=== PATIENT | female | born 1955 | race Caucasian/White ===

== ENCOUNTER 2016-03-31 18:37 | Emergency (ER) | payer OTHER ==
[~2016-03-31] VITALS: Ht 167.6 cm; Wt 57.2 kg
[~2016-03-31 18:37] MED LIST: BIAXIN500 M1 PO; PREDNISONE20 M1 PO; PROVENTIL HFA6.7 GM INH
[2016-03-31 19:56] LABS: ABSOLUTE BASOPHIL COUNT 0.1 /CUMM (0.0-0.2); ABSOLUTE EOSINOPHIL COUNT 0.2 /CUMM (0.0-0.7); ABSOLUTE GRANULOCYTE CT 8.9 /CUMM (1.4-6.5); ABSOLUTE MONOCYTE COUNT 0.8 /CUMM (0.10-0.60); BASOPHIL % 0.5 % (0.0-2.0); EOSINOPHIL % 1.3 % (0-5); GRANULOCYTE % 74.6 % (42.2-75.2); MEAN CORPUSCULAR HGB 28.1 PG (27.0-31.0); MEAN CORPUSCULAR HGB CONC 33.2 G/DL (33.0-37.0); MEAN CORPUSCULAR VOLUME 84.6 FL (81.0-99.0); MEAN PLATELET VOLUME 8.2 FL (7.4-10.4); PLATELET COUNT 350 /CUMM (130-400); RBC DISTRIBUTION WIDTH 14.1 % (11.5-14.5); RED BLOOD CELL CT 5.44 /CUMM (4.20-5.40); WHITE BLOOD CELL COUNT 11.9 /CUMM (4.8-10.8)
--- NOTE | 2016-03-31 20:37 | RADIOLOGY REPORT ---
EXAMINATION: XR PORTABLE CHEST CLINICAL INFORMATION: Chest pain. COMPARISON: Chest x-ray 07/04/2015. TECHNIQUE: Portable view of the chest was obtained. FINDINGS: The visualized lungs are hyperinflated. There are subtle airspace opacities within the right lower lobe, more conspicuous relative to the prior examination, suspicious for recurrent pneumonia. The left lung is grossly clear. No pleural effusions or pneumothoraces are identified. Cardiac mediastinal contours are stable. Surgical clips are present within the right axilla. There is no visible acute osseous abnormality. IMPRESSION: Patchy airspace opacities within the right lung base, suspicious for infection. Recommend follow-up PA and lateral chest x-ray following treatment to injury resolution. Pulmonary hyperinflation and flattening of the bilateral hemidiaphragms. This constellation of findings can be seen in the setting of COPD.
--- NOTE | 2016-03-31 21:14 | ED INFLUENZA/URI COMPLAINT ---
History of Present Illness General Chief Complaint: Upper Respiratory Sx/Fever Stated Complaint: CP, URI, X 4 DAYS Source: patient Exam Limitations: no limitations Vital Signs & Intake/Output Vital Signs & Intake/Output Vital Signs Date Time Temp Pulse Resp B/P Pulse O2 O2 Flow FiO2 Ox Delivery Rate 04/01 0123 98.0 62 18 104/60 92 Room Air 03/31 2341 98.4 63 18 102/64 91 Room Air 03/31 2123 100.2 60 24 118/60 Room Air ED Intake and Output 04/01 0000 03/31 1200 Intake Total Output Total Balance Patient 126 lb Weight Allergies Coded Allergies: Penicillins (HIVES 07/04/15) cefdinir (UNKNOWN 07/04/15) fentanyl (RESPIRATORY 07/04/15) meloxicam (UNKNOWN 07/04/15) shellfish derived (UNKNOWN 07/04/15) tramadol (UNKNOWN 07/04/15) Sulfa (Sulfonamide Antibiotics) (GI 07/04/15) Reconcile Medications Albuterol Sulfate (Proventil Hfa) 6.7 GM HFA.AER.AD 2 PUF INH Q4 BRONCHITIS Albuterol Sulfate (Proventil Hfa) 90 MCG HFA.AER.AD 2 PUF INH Q4 PRN wheeze Clarithromycin (Biaxin) 500 MG TABLET 1 TAB PO BID INFN Levofloxacin (Levaquin) 500 MG TABLET 1 TAB PO DAILY bronchitis/copd exacerbation Prednisone 20 MG TABLET 2 TAB PO BID BRONCHITIS Prednisone 50 MG TABLET 1 TAB PO DAILY copd exacerbation Triage Note: PT TO ED FOR FLU LIKE SYMPTOMS SINCE SUNDAY, REPORTING FEVER, NAUSEA, SORE THROAT, EAR ACHES PRODUCTIVE GREEN COUGH. Triage Nurses Notes Reviewed? yes Onset: Gradual Duration: day(s): Timing: recent history Severity: moderate Prior Episodes/Possible Cause: occassional episodes Modifying Factors: Worsens With: other (worse w/ coughing). Associated Symptoms: cough, wheezing HPI: 61 yo woman h/o copd, h/o pneumonia, presents with cough, phlegm, and wheeze, "just like last year when I had pneumonia." She notes that she completed a course of cephalosporin and started a second course 3 days ago. She notes fever today to 101.4 and body aches. Past History Travel History Traveled to [place] past 21 day No Medical History Any Pertinent Medical History? 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 No Review of Systems Review of Systems Constitutional: Reports: no symptoms. EENTM: Reports: no symptoms. Respiratory: Reports: no symptoms. Cardiovascular: Reports: no symptoms. GI: Reports: no symptoms. Genitourinary: Reports: no symptoms. Musculoskeletal: Reports: no symptoms. Skin: Reports: no symptoms. Neurological/Psychological: Reports: no symptoms. Hematologic/Endocrine: Reports: no symptoms. Immunologic/Allergic: Reports: no symptoms. All Other Systems: Reviewed and Negative Physical Exam Physical Exam General Appearance: well developed/nourished, mild distress Head: atraumatic, normal appearance Eyes: Bilateral: normal appearance. Ears, Nose, Throat: normal ENT inspection, moist mucous membrane Neck: normal inspection, supple, full range of motion Respiratory: chest non-tender, rhonchi, wheezing Cardiovascular: regular rate/rhythm Gastrointestinal: normal bowel sounds, soft Back: normal inspection Extremities: normal inspection Neurologic/Psych: no motor/sensory deficits, awake, alert, oriented x 3 Skin: intact, normal color, warm/dry Core Measures Severe Sepsis Present: No Septic Shock Present: No Progress Differential Diagnosis: copd, bronchitis, pneumonia Plan of Care: Orders Procedure Date/time Status TROPONIN LEVEL 03/31 1912 Complete D-DIMER 03/31 1912 Complete COMPREHENSIVE METABOLIC PANEL 03/31 1912 Complete CBC WITHOUT DIFFERENTIAL 03/31 1912 Complete EKG 03/31 183 Active Laboratory Tests 03/31/167: Anion Gap 12, Estimated GFR > 60, BUN/Creatinine Ratio 17.1, Glucose 107 H, Calcium 9.6, Total Bilirubin 1.9 H, AST 18, ALT 25, Alkaline Phosphatase 100, Troponin I < 0.01, Total Protein 7.3, Albumin 4.0, Globulin 3.3, Albumin/ Globulin Ratio 1.2, D-Dimer 468 H, CBC w Diff NO MAN DIFF REQ, RBC 5.44 H, MCV 84.6, MCH 28.1, RDW 14.1, MPV 8.2, Gran % 74.6, Lymphocytes % 16.5 L, Monocytes % 7.1, Eosinophils % 1.3, Basophils % 0.5, Absolute Granulocytes 8.9 H, Absolute Lymphocytes 2.0, Absolute Monocytes 0.8 H, Absolute Eosinophils 0.2, Absolute Basophils 0.1, PUBS MCHC 33.2 Diagnostic Imaging: Viewed by Me: Radiology Read. Discussed w/RAD: Radiology Read. Radiology Impression: chest ct... no pe. CXR Impression: RIGHT INFILTRATE Initial ED EKG: normal axis, normal intervals, normal p-waves, normal QRS complex, normal sinus rhythm Comments: PATIENT: RUCHI RICHARDSON PRESENT AGE: 61 PATIENT ACCOUNT NO: [id number] : 54 LOCATION: [facility] ORDERING PHYSICIAN: ELSY NICOLE MD SERVICE DATE: 03/31/16 EXAM TYPE: CAT - CTA CHEST-PULMONARY EMBOLISM EXAMINATION: CT ANGIOGRAM OF THE CHEST WITH AND WITHOUT CONTRAST (CT PULMONARY ANGIOGRAM FOR PE) CLINICAL INFORMATION: Chest pain. Positive d-dimer. COMPARISON: Chest x-ray 03/31/2016. CT chest 02/27/2011 TECHNIQUE: Prior to contrast administration, noncontrast localization images were obtained. Subsequently, multidetector volumetric imaging was performed from the thoracic inlet to below the diaphragms following the administration of 80 mL Omnipaque 350 intravenous contrast. No contrast reaction reported Sagittal, coronal, and MIP oblique sagittal reformatted images were obtained on the CT workstation, uploaded to PACS, and reviewed. Total exam dose-length product 272.99 mGy-cm FINDINGS: QUALITY OF STUDY/CONTRAST BOLUS: Satisfactory. PULMONARY ARTERIES: No central or segmental pulmonary emboli. THORACIC AORTA: No aneurysm or dissection. LUNG: Emphysematous lucency of lung. Multifocal airspace disease. There is patchy areas of airspace disease which is most extensive in the right lower lobe subpleural lung with patchy and consolidated densities. Smaller groundglass opacity in the right lower lobe posteriorly and in the peripheral anterior left lower lobe and anterior right middle lobe. Calcified subpleural nodule posterior right upper lobe measuring 4 mm image 13 (3). PLEURA: No pleural effusion or pneumothorax. MEDIASTINUM: Normal heart size. No pericardial effusion. No hilar or mediastinal lymphadenopathy. No evidence of septal bowing or right heart strain. CHEST WALL/AXILLA: No axillary or internal mammary lymphadenopathy. OSSEOUS STRUCTURES: No acute or suspicious osseous abnormality. UPPER ABDOMEN: Unremarkable. No reflux of contrast into the hepatic veins to suggest elevated right heart pressures. IMPRESSION: 1. No evidence of pulmonary embolism. 2. Emphysematous changes of lungs. 3. Multifocal airspace disease most significant at the posterior right lower lobe. VTE: negative DICTATED BY: JUSTICE TAYLOR MD DATE/TIME DICTATED:03/31/162339 DISCHARGE DOOR OPERATOR:GERRI DATE/TIME TRANSCRIBED:03/31/162339 CONFIDENTIAL, DO NOT COPY WITHOUT APPROPRIATE AUTHORIZATION. <Electronically signed in Other Vendor System> SIGNED BY: JUSTICE TAYLOR MD 03/31/16 [id number] PATIENT: RUCHI RICHARDSON PRESENT AGE: 61 PATIENT ACCOUNT NO: [id number] : 54 LOCATION: [facility] ORDERING PHYSICIAN: ELSY NICOLE MD SERVICE DATE: 03/31/16 EXAM TYPE: CAT - CTA CHEST-PULMONARY EMBOLISM EXAMINATION: CT ANGIOGRAM OF THE CHEST WITH AND WITHOUT CONTRAST (CT PULMONARY ANGIOGRAM FOR PE) CLINICAL INFORMATION: Chest pain. Positive d-dimer. COMPARISON: Chest x-ray 03/31/2016. CT chest 02/27/2011 TECHNIQUE: Prior to contrast administration, noncontrast localization images were obtained. Subsequently, multidetector volumetric imaging was performed from the thoracic inlet to below the diaphragms following the administration of 80 mL Omnipaque 350 intravenous contrast. No contrast reaction reported Sagittal, coronal, and MIP oblique sagittal reformatted images were obtained on the CT workstation, uploaded to PACS, and reviewed. Total exam dose-length product 272.99 mGy-cm FINDINGS: QUALITY OF STUDY/CONTRAST BOLUS: Satisfactory. PULMONARY ARTERIES: No central or segmental pulmonary emboli. THORACIC AORTA: No aneurysm or dissection. LUNG: Emphysematous lucency of lung. Multifocal airspace disease. There is patchy areas of airspace disease which is most extensive in the right lower lobe subpleural lung with patchy and consolidated densities. Smaller groundglass opacity in the right lower lobe posteriorly and in the peripheral anterior left lower lobe and anterior right middle lobe. Calcified subpleural nodule posterior right upper lobe measuring 4 mm image 13 (3). PLEURA: No pleural effusion or pneumothorax. MEDIASTINUM: Normal heart size. No pericardial effusion. No hilar or mediastinal lymphadenopathy. No evidence of septal bowing or right heart strain. CHEST WALL/AXILLA: No axillary or internal mammary lymphadenopathy. OSSEOUS STRUCTURES: No acute or suspicious osseous abnormality. UPPER ABDOMEN: Unremarkable. No reflux of contrast into the hepatic veins to suggest elevated right heart pressures. IMPRESSION: 1. No evidence of pulmonary embolism. 2. Emphysematous changes of lungs. 3. Multifocal airspace disease most significant at the posterior right lower lobe. VTE: negative DICTATED BY: JUSTICE TAYLOR MD DATE/TIME DICTATED:03/31/162339 DISCHARGE DOOR OPERATOR:SAUNDERS DATE/TIME TRANSCRIBED:03/31/162339 CONFIDENTIAL, DO NOT COPY WITHOUT APPROPRIATE AUTHORIZATION. <Electronically signed in Other Vendor System> SIGNED BY: JUSTICE TAYLOR MD 03/31/16 [id number] PATIENT: RUCHI RICHARDSON PRESENT AGE: 61 PATIENT ACCOUNT NO: [id number] : 54 LOCATION: [facility] ORDERING PHYSICIAN: ELSY NICOLE MD SERVICE DATE: 03/31/16 EXAM TYPE: RAD - XRY-PORTABLE CHEST XRAY EXAMINATION: XR PORTABLE CHEST CLINICAL INFORMATION: Chest pain. COMPARISON: Chest x-ray 07/04/2015. TECHNIQUE: Portable view of the chest was obtained. FINDINGS: The visualized lungs are hyperinflated. There are subtle airspace opacities within the right lower lobe, more conspicuous relative to the prior examination, suspicious for recurrent pneumonia. The left lung is grossly clear. No pleural effusions or pneumothoraces are identified. Cardiac mediastinal contours are stable. Surgical clips are present within the right axilla. There is no visible acute osseous abnormality. IMPRESSION: Patchy airspace opacities within the right lung base, suspicious for infection. Recommend follow-up PA and lateral chest x-ray following treatment to injury resolution. Pulmonary hyperinflation and flattening of the bilateral hemidiaphragms. This constellation of findings can be seen in the setting of COPD. DICTATED BY: JENNIFER MUSTFAA MD DATE/TIME DICTATED:03/31/162030 DISCHARGE DOOR OPERATOR:[email or web address] DATE/TIME TRANSCRIBED:03/31/162030 CONFIDENTIAL, DO NOT COPY WITHOUT APPROPRIATE AUTHORIZATION. <Electronically signed in Other Vendor System> SIGNED BY: JENNIFER MUSTAFA MD 03/31/162036 Departure Departure Disposition: HOME OR SELF CARE Condition: Stable Clinical Impression Primary Impression: Pneumonia Secondary Impressions: COPD exacerbation Referrals: JESUS KENNEY,EDILMA Pang (PCP/Family) Departure Forms: Customer Survey General Discharge Information Prescriptions: Current Visit Scripts Levofloxacin (Levaquin) 1 TAB PO DAILY #10 TAB Prednisone 1 TAB PO DAILY #5 TAB Albuterol Sulfate (Proventil Hfa) 2 PUF INH Q4 PRN wheeze #1 INHAL Ref 2 Comments pt feeling well after supportive medications. ct scan negative... pt safe for discharge with steroids and antibiotics.
[2016-03-31] MEDS ORDERED: PROVENTIL HFA6.7 GM INH (21:25)
[2016-03-31] MEDS ORDERED: PREDNISONE50 M1 PO (21:25)
[2016-03-31] MEDS ORDERED: LEVAQUIN500 M1 PO (21:25)
--- NOTE | 2016-03-31 23:55 | CT SCAN REPORT ---
EXAMINATION: CT ANGIOGRAM OF THE CHEST WITH AND WITHOUT CONTRAST (CT PULMONARY ANGIOGRAM FOR PE) CLINICAL INFORMATION: Chest pain. Positive d-dimer. COMPARISON: Chest x-ray 03/31/2016. CT chest 02/27/2011 TECHNIQUE: Prior to contrast administration, noncontrast localization images were obtained. Subsequently, multidetector volumetric imaging was performed from the thoracic inlet to below the diaphragms following the administration of 80 mL Omnipaque 350 intravenous contrast. No contrast reaction reported Sagittal, coronal, and MIP oblique sagittal reformatted images were obtained on the CT workstation, uploaded to PACS, and reviewed. Total exam dose-length product 272.99 mGy-cm FINDINGS: QUALITY OF STUDY/CONTRAST BOLUS: Satisfactory. PULMONARY ARTERIES: No central or segmental pulmonary emboli. THORACIC AORTA: No aneurysm or dissection. LUNG: Emphysematous lucency of lung. Multifocal airspace disease. There is patchy areas of airspace disease which is most extensive in the right lower lobe subpleural lung with patchy and consolidated densities. Smaller groundglass opacity in the right lower lobe posteriorly and in the peripheral anterior left lower lobe and anterior right middle lobe. Calcified subpleural nodule posterior right upper lobe measuring 4 mm image 13 (3). PLEURA: No pleural effusion or pneumothorax. MEDIASTINUM: Normal heart size. No pericardial effusion. No hilar or mediastinal lymphadenopathy. No evidence of septal bowing or right heart strain. CHEST WALL/AXILLA: No axillary or internal mammary lymphadenopathy. OSSEOUS STRUCTURES: No acute or suspicious osseous abnormality. UPPER ABDOMEN: Unremarkable. No reflux of contrast into the hepatic veins to suggest elevated right heart pressures. IMPRESSION: 1. No evidence of pulmonary embolism. 2. Emphysematous changes of lungs. 3. Multifocal airspace disease most significant at the posterior right lower lobe. VTE: negative
[2016-04-01 01:23] VITALS: BP 104/60
== END 2016-04-01 01:21 ==
LOC: ERH 18:37
PROVIDERS: Pediatrics
DX: R07.9 Chest pain, unspecified (principal); J18.9 Pneumonia, unspecified organism; J44.1 Chronic obstructive pulmonary disease with (acute) exacerbation
CPT/HCPCS: 1263; 93005; 93010; 96374; J2930